=== PATIENT | male | born 1980 | race Caucasian/White ===

== ENCOUNTER 2017-02-26 16:32 | Emergency (ER) | payer OTHER ==
[~2017-02-26] VITALS: Ht 180.3 cm; Wt 70.0 kg
[~2017-02-26 16:32] MED LIST: AMLODIPINE BESY10 MG PO; ATRIPLA TABLET1 EACH PO; ATROVENT 00.5 MG/2.5 AEROSOL; BUMETANIDE1 MG PO; BUMETANIDE2 MG PO; CARVEDILOL25 MG PO; CLONAZEPAM0.5 MG PO; DOXAZOSIN MESYLA2 MG PO; DOXAZOSIN MESYLA4 MG PO; DUONEB 2.5-0.5 M3 ML AEROSOL; ERGOCALCIF50000 UNIT PO; KEFLEX500 MG PO; LANTUS 10100 UNITS/ SC; LEVEMIR100 UNIT/2 SC; LISINOPRIL10 MG PO; LISINOPRIL40 MG PO; NICOTINE PATCH1 EAC2 TD; NIFEDIPINE ER90 MG PO; NORMODYNE,TRAN200 MG PO; NORVASC10 MG PO; NOVOLOG 10100 UNITS/ SC; NOVOLOG PE100 UNITS/ SC; PERCOCET 5/31 TABLET PO; PROAIR HFA8.5 GM IH; PROBIOTIC1 EAC1 PO; PROVENTIL,2.5 MG/0.5 AEROSOL; ROCALTROL0.25 MCG PO; SIMVASTATIN10 MG PO; SIMVASTATIN20 MG PO; SIMVASTATIN40 MG PO; SPIRONOLACTONE25 MG PO; TRIUMEQ TABLET1 EACH PO; ZOVIRAX800 M1 PO
[2017-02-26 17:57] LABS: CHLORIDE 101 mEq/L (99-109); POTASSIUM 3.8 mEq/L (3.7-5.4); SODIUM 138 mEq/L (136-147)
[2017-02-26 17:59] LABS: GLUCOSE 112 mg/dL (70-99)
[2017-02-26 18:00] LABS: ANION GAP 15 MEQ/L (2-14)
[2017-02-26 18:01] LABS: TOTAL BILIRUBIN 0.5 mg/dL (0.0-1.0)
[2017-02-26 18:03] LABS: ALKALINE PHOSPHATASE 144 IU/L (3-129); GFR ESTIMATE (CALCULATED) 10 mL/min/
[2017-02-26 18:04] LABS: UREA NITROGEN (BUN) 31 mg/dL (9-23)
[2017-02-26 18:06] LABS: HEMATOCRIT 34.7 % (38.0-50.0); MCH 31.7 PG (29.0-34.0); MCHC 32.9 G/DL (30.0-36.0); MCV 96.4 FL (86-99); MEAN PLAT.VOLUME 9.8 uM^3 (9.0-12.4); PLATELET COUNT 200 K/uL (156-360); RBC DIS.WIDTH-CV 12.5 % (11.8-14.6); RBC DIS.WIDTH-SD 44.7 % (39-53); WHITE BLOOD COUNT 8.6 K/uL (4.1-10.2)
[2017-02-26 19:41] LABS: INFLUENZA A VIRAL ANTIGEN NEGATIVE; INFLUENZA B VIRAL ANTIGEN NEGATIVE
[2017-02-26] MEDS ORDERED: ZOFRAN ODT4 MG PO (20:24)
[2017-02-26 20:38] VITALS: BP 146/82
== END 2017-02-26 20:40 | disposition home or self-care (01) ==
LOC: EME 16:32
PROVIDERS: Nurse Practitioner Family
DX: R11.2 Nausea with vomiting, unspecified (principal); R19.7 Diarrhea, unspecified; R50.9 Fever, unspecified; N18.5 Chronic kidney disease, stage 5; Z99.2 Dependence on renal dialysis; J45.909 Unspecified asthma, uncomplicated; F17.200 Nicotine dependence, unspecified, uncomplicated
CPT/HCPCS: 71020; 80053; 81003; 85027; 87502; 99281; 99284; J2405; J2765; J7030; J7050

== ENCOUNTER 2017-12-11 11:02 | Emergency (ER) | payer OTHER ==
[~2017-12-11] VITALS: Ht 180.3 cm; Wt 73.6 kg
[~2017-12-11 11:02] MED LIST changes: +ZOFRAN ODT4 MG PO
[2017-12-11] MEDS ORDERED: NORCO 5/3251 TABLET PO (13:54)
[2017-12-11] MEDS ORDERED: VIBRAMYCIN100 MG PO (13:54)
[2017-12-11 14:11] VITALS: BP 183/98
== END 2017-12-11 14:18 | disposition home or self-care (01) ==
LOC: EME 11:02
PROVIDERS: Emergency Medicine
PROC: 0H94XZX Drainage of Neck Skin, External Approach, Diagnostic (ICD-10-PCS; principal; 2017-12-11)
DX: L02.11 Cutaneous abscess of neck (principal); R50.9 Fever, unspecified; R05 Cough; E11.22 Type 2 diabetes mellitus with diabetic chronic kidney disease; I12.0 Hypertensive chronic kidney disease with stage 5 chronic kidney disease or end stage renal disease; N18.5 Chronic kidney disease, stage 5; Z99.2 Dependence on renal dialysis; Z79.4 Long term (current) use of insulin; J45.909 Unspecified asthma, uncomplicated; F17.200 Nicotine dependence, unspecified, uncomplicated
CPT/HCPCS: 71046; 87070; 87075; 87076; 87205; 87502; 99281; 99285

== ENCOUNTER → 2018-01-04 | Outpatient (CLI) | payer MEDICARE, OTHER ==
[~2018-01-04] MED LIST changes: +NORCO 5/3251 TABLET PO; +VIBRAMYCIN100 MG PO
== END | disposition home or self-care (01) ==
LOC: CDC 11:06
DX: Z01.810 Encounter for preprocedural cardiovascular examination (principal); I51.7 Cardiomegaly; R94.31 Abnormal electrocardiogram [ECG] [EKG]
CPT/HCPCS: 93000

== ENCOUNTER 2018-01-06 05:22 | Day surgery (SDC) | payer OTHER ==
[~2018-01-06] VITALS: Ht 180.3 cm; Wt 72.8 kg
[2018-01-06 06:05] VITALS: BP 146/82
[2018-01-06] MEDS ORDERED: NORVASC10 MG PO (06:08)
[2018-01-06 06:52] LABS: HEMATOCRIT 33.8 % (38.0-50.0); HEMOGLOBIN 11.1 G/DL (12.5-16.6); MCH 32.1 PG (29.0-34.0); MCHC 32.8 G/DL (30.0-36.0); MCV 97.7 FL (86-99); PLATELET COUNT 198 K/uL (156-360); RBC DIS.WIDTH-CV 13.1 % (11.8-14.6); RBC DIS.WIDTH-SD 46.1 % (39-53); RED BLOOD COUNT 3.46 M/uL (4.00-5.50); WHITE BLOOD COUNT 8.7 K/uL (4.1-10.2)
[2018-01-06 07:03] LABS: CHLORIDE 99 MEQ/L (99-109); POTASSIUM 4.9 MEQ/L (3.7-5.4); SODIUM 136 MEQ/L (136-147)
[2018-01-06 07:09] LABS: CREATININE 8.5 MG/DL (0.6-1.3); GFR ESTIMATE (CALCULATED) 8 mL/min/ (58.99-99999); GLUCOSE 117 mg/dL (70-99); UREA NITROGEN (BUN) 58 mg/dL (9-23)
[2018-01-06 09:26] VITALS: BP 129/77
[2018-01-06 10:03] VITALS: BP 126/74
== END 2018-01-06 10:05 | disposition home or self-care (01) ==
LOC: SDC 05:22
PROVIDERS: Surgery
PROC: 05WY07Z Revision of Autologous Tissue Substitute in Upper Vein, Open Approach (ICD-10-PCS; principal; 2018-01-06)
DX: T82.41XA Breakdown (mechanical) of vascular dialysis catheter, initial encounter (principal); Y83.2 Surgical operation with anastomosis, bypass or graft as the cause of abnormal reaction of the patient, or of later complication, without mention of misadventure at the time of the procedure; I12.0 Hypertensive chronic kidney disease with stage 5 chronic kidney disease or end stage renal disease; E10.22 Type 1 diabetes mellitus with diabetic chronic kidney disease; F17.210 Nicotine dependence, cigarettes, uncomplicated; N18.6 End stage renal disease; Z99.2 Dependence on renal dialysis; Z79.4 Long term (current) use of insulin; J45.909 Unspecified asthma, uncomplicated
CPT/HCPCS: 80048; 82948; 85027; C2628; J0690; J1644; J2250; J2720; J3010; S0020

== ENCOUNTER 2018-01-26 14:08 | Inpatient (IN) | payer OTHER ==
[~2018-01-26] VITALS: Ht 180.3 cm; Wt 72.2 kg
[2018-01-26 15:13] LABS: HEMATOCRIT 38.1 % (38.0-50.0); HEMOGLOBIN 13.1 G/DL (12.5-16.6); MCH 32.3 PG (29.0-34.0); MCHC 34.4 G/DL (30.0-36.0); PLATELET COUNT 237 K/uL (156-360); RBC DIS.WIDTH-CV 12.2 % (11.8-14.6); RBC DIS.WIDTH-SD 42.8 % (39-53); RED BLOOD COUNT 4.05 M/uL (4.00-5.50); WHITE BLOOD COUNT 9.4 K/uL (4.1-10.2)
[2018-01-26 15:16] LABS: MCV 94.1 FL (86-99)
[2018-01-26 15:21] LABS: CHLORIDE 81 mEq/L (99-109); POTASSIUM 3.6 mEq/L (3.7-5.4); SODIUM 141 mEq/L (136-147)
[2018-01-26 15:23] LABS: GLUCOSE 224 mg/dL (70-99)
[2018-01-26 15:27] LABS: CREATININE 7.4 mg/dL (0.6-1.3); GFR ESTIMATE (CALCULATED) 9 mL/min/ (58.99-99999)
[2018-01-26 15:28] LABS: UREA NITROGEN (BUN) 39 mg/dL (9-23)
[2018-01-26 15:37] LABS: CARBON DIOXIDE (BICARBONATE) > 40.0 mEq/L (20-31)
[2018-01-26 16:52] LABS: VENOUS PCO2 52 mm Hg (41-51)
[2018-01-26 16:56] LABS: CARBON DIOXIDE (BICARBONATE) > 40.0 MEQ/L (20-31)
[2018-01-26 17:08] LABS: CHLORIDE 80 mEq/L (99-109); POTASSIUM 3.8 mEq/L (3.7-5.4); SODIUM 140 mEq/L (136-147)
[2018-01-26 17:09] LABS: MAGNESIUM 2.4 mg/dL (1.3-2.7)
[2018-01-26 17:10] LABS: GLUCOSE 219 mg/dL (70-99)
[2018-01-26 17:14] LABS: CREATININE 7.7 mg/dL (0.6-1.3); GFR ESTIMATE (CALCULATED) 9 mL/min/ (58.99-99999)
[2018-01-26 17:15] LABS: UREA NITROGEN (BUN) 40 mg/dL (9-23)
[2018-01-26 17:19] LABS: CARBON DIOXIDE (BICARBONATE) > 40.0 mEq/L (20-31)
[2018-01-26] MEDS ORDERED: RENVELA800 MG PO ×2 (17:46→17:47)
[2018-01-26] MEDS ORDERED: EPIVIR HBV100 MG PO (17:47)
[2018-01-26] MEDS ORDERED: TIVICAY50 MG PO (17:47)
[2018-01-26] MEDS ORDERED: ZIAGEN300 MG PO (17:48)
[2018-01-26] MEDS ORDERED: SENSIPAR30 MG PO (17:50)
[2018-01-26] MEDS ORDERED: LANTUS 10100 UNITS/ SC (17:50)
[2018-01-26] MEDS ORDERED: REGLAN10 MG PO (17:51)
[2018-01-26] MEDS ORDERED: RENAL VITAMIN0.8 MG PO (17:53)
[2018-01-26] MEDS ORDERED: PROTONIX40 MG PO (17:53)
[2018-01-26 21:31] LABS: HEMATOCRIT 34.8 % (38.0-50.0); HEMOGLOBIN 11.9 G/DL (12.5-16.6); MCH 32.6 PG (29.0-34.0); MCHC 34.2 G/DL (30.0-36.0); MCV 95.3 FL (86-99); PLATELET COUNT 219 K/uL (156-360); RBC DIS.WIDTH-CV 12.4 % (11.8-14.6); RBC DIS.WIDTH-SD 43.5 % (39-53); RED BLOOD COUNT 3.65 M/uL (4.00-5.50); WHITE BLOOD COUNT 8.2 K/uL (4.1-10.2)
[2018-01-26 22:54] VITALS: BP 175/98
[2018-01-27 03:10] VITALS: BP 140/69
[2018-01-27 05:44] LABS: ALBUMIN 3.7 G/DL (3.2-4.8); ALKALINE PHOSPHATASE 76 IU/L (3-129); ALT (GPT) 12 IU/L (3-49); AST (GOT) 14 IU/L (2-34); CHLORIDE 86 MEQ/L (99-109); GFR ESTIMATE (CALCULATED) 8 mL/min/ (58.99-99999); POTASSIUM 3.3 MEQ/L (3.7-5.4); SODIUM 142 MEQ/L (136-147); TOTAL BILIRUBIN 0.6 MG/DL (0.0-1.0); TOTAL PROTEIN 6.5 G/DL (6.4-8.3); UREA NITROGEN (BUN) 45 mg/dL (9-23)
[2018-01-27 05:47] LABS: CARBON DIOXIDE (BICARBONATE) > 40.0 MEQ/L (20-31); GLUCOSE 65 mg/dL (70-99)
[2018-01-27 07:37] VITALS: BP 156/84
[2018-01-27 08:36] LABS: APPEARANCE SL.HAZY ((CLEAR)); BILIRUBIN NEGATIVE; BLOOD NEGATIVE; COLOR YELLOW ((YELLOW)); GLUCOSE (STRIP) >=500; KETONES NEGATIVE; LEUKOCYTES NEGATIVE; NITRITE NEGATIVE; PROTEIN (STRIP) >=500; SPECIFIC GRAVITY 1.009 (1.000-1.030); UROBILINOGEN 0.2 MG/DL (0.2-1.0)
[2018-01-27 08:48] LABS: BACTERIA RARE /HPF; CALCIUM OXALATE CRYSTALS 1+ /HPF; EPITHELIAL CELLS RARE /HPF; HYALINE CASTS 0-5 /LPF; MUCUS TRACE /LPF; RED BLOOD CELLS 0-5 /HPF (0-5); UCUL ADDED? NO; WHITE BLOOD CELLS 0-5 /HPF (0-5)
[2018-01-27 12:31] VITALS: BP 145/81
[2018-01-27] MEDS ORDERED: METOCLOPRAMIDE10 MG PO (13:20)
[2018-01-27] MEDS ORDERED: PROTONIX40 MG PO (13:20)
[2018-01-27] MEDS ORDERED: LABETALOL HCL200 MG PO (13:20)
== END 2018-01-27 15:10 | disposition home or self-care (01) | DRG 391 ==
LOC: EME 14:08 → EDOF 20:24 → ENRESERV 20:25 → 3EAST 22:52
PROVIDERS: Emergency Medicine; Hospitalist
DX: K31.84 Gastroparesis (principal); N18.6 End stage renal disease; B20 Human immunodeficiency virus [HIV] disease; E83.52 Hypercalcemia; I42.9 Cardiomyopathy, unspecified; E87.3 Alkalosis; E83.51 Hypocalcemia; E86.0 Dehydration; E10.22 Type 1 diabetes mellitus with diabetic chronic kidney disease; E10.43 Type 1 diabetes mellitus with diabetic autonomic (poly)neuropathy; D64.9 Anemia, unspecified; I12.0 Hypertensive chronic kidney disease with stage 5 chronic kidney disease or end stage renal disease; F17.200 Nicotine dependence, unspecified, uncomplicated; J45.909 Unspecified asthma, uncomplicated; Z79.4 Long term (current) use of insulin; Z82.3 Family history of stroke; Z82.49 Family history of ischemic heart disease and other diseases of the circulatory system; Z99.2 Dependence on renal dialysis
CPT/HCPCS: 80048; 80048 91; 80053; 81003; 82330; 82803; 82948; 83735; 85027; 93005; 94799; 99202; 99281; 99285; C9113; J0360; J1630; J1644; J1815; J2405; J7030